=== PATIENT | female | born 1995 | race Caucasian/White ===

== ENCOUNTER 2017-11-05 16:10 | Inpatient (IN) | payer OTHER ==
[~2017-11-05] VITALS: Ht 157.5 cm; Wt 76.7 kg
[2017-11-05] MEDS ORDERED: ZYRTEC10 MG PO (16:42)
[2017-11-05] MEDS ORDERED: PRENATAL FORMU1 EAC1 PO (16:43)
== END 2017-11-08 11:45 | DRG 778 ==
LOC: LDR 16:10 → OB/GYN 11-07 13:56
PROC: 4A1HXCZ Monitoring of Products of Conception, Cardiac Rate, External Approach (ICD-10-PCS; principal; 2017-11-05)
DX: O60.03 Preterm labor without delivery, third trimester (principal); Z3A.35 35 weeks gestation of pregnancy

== ENCOUNTER 2017-11-30 07:08 | Inpatient (IN) | payer OTHER ==
[~2017-11-30] VITALS: Ht 157.5 cm; Wt 170.0 kg
[~2017-11-30 07:08] MED LIST: PRENATAL FORMU1 EAC1 PO; ZYRTEC10 MG PO
[2017-11-30] MEDS ORDERED: PRENATAL TABLE1 EAC2 PO (09:52)
== END 2017-12-03 18:05 | disposition home or self-care (01) | DRG 775 ==
LOC: OB/GYN 07:08 → LDR 07:08 → OB/GYN 12-01 04:41
PROC: 4A1HXCZ Monitoring of Products of Conception, Cardiac Rate, External Approach (ICD-10-PCS; 2017-11-30)
PROC: 10E0XZZ Delivery of Products of Conception, External Approach (ICD-10-PCS; principal; 2017-12-01)
PROC: 0W8NXZZ Division of Female Perineum, External Approach (ICD-10-PCS; 2017-12-01)
PROC: 3E033VJ Introduction of Other Hormone into Peripheral Vein, Percutaneous Approach (ICD-10-PCS; 2017-12-01)
DX: O80 Encounter for full-term uncomplicated delivery (principal); Z3A.39 39 weeks gestation of pregnancy; Z37.0 Single live birth